=== PATIENT | female | born 1965 | race Caucasian/White ===

== ENCOUNTER 2017-12-14 17:55 | Emergency (ER) | payer MEDICAID ==
[~2017-12-14] VITALS: Ht 165.1 cm; Wt 71.9 kg
[2017-12-14 19:33] LABS: BASOPHILS % 0.8 % (0.0-2.0); EOSINOPHILS % 0.2 % (0.0-5.0); HEMATOCRIT. 41.9 % (36.0-48.0); HEMOGLOBIN. 14.5 g/dL (12.0-16.0); LYMPHOCYTES % 23.5 % (20.0-50.0); MEAN CORPUSCULAR HEMOGLOBIN 31.6 pg (28.0-32.0); MEAN PLATELET VOLUME 8.2 fl (7.4-10.4); MONOCYTES % 9.1 % (2.0-8.0); NEUTROPHILS % 66.4 % (40.0-76.0); PLATELET 345 x1000/uL (130-400); RED CELL DISTRIBUTION WIDTH 13.3 % (11.6-14.6)
[2017-12-14 19:38] LABS: CHLORIDE 105 mEq/L (98-107)
[2017-12-14 19:43] LABS: PARTIAL THROMBOPLASTIN TIME 26.1 sec (23.4-31.0); PROTHROMBIN TIME 10.7 sec (9.4-11.6)
[2017-12-14] MEDS ORDERED: IBUPROFEN 600MG TABLET PO ONE (20:30)
[2017-12-14 20:58] VITALS: BP 142/72
== END 2017-12-14 20:59 | disposition home or self-care (01) ==
LOC: ER 18:34
DX: R07.89 Other chest pain (principal); M79.602 Pain in left arm; R73.03 Prediabetes
CPT/HCPCS: 36415; 71045; 80053; 83880; 84484; 85025; 85610; 85730; 93005; 99285; Z7610